=== PATIENT | female | born 1930 | race Asian ===

== ENCOUNTER 2017-12-28 13:01 | Inpatient (IN) | payer MEDICARE, OTHER ==
[~2017-12-28] VITALS: Ht 160 cm; Wt 54.4 kg
[~2017-12-28 13:01] MED LIST: LOSA50TA20 PO; METF-414 PO
[2017-12-28] MEDS ORDERED: DOXA1TAB2 PO (13:19)
[2017-12-28] MEDS ORDERED: PRAV20TA57 PO (13:19)
[2017-12-28] MEDS ORDERED: XAR15 PO (13:19)
[2017-12-28] MEDS ORDERED: DILT180T11 PO (13:19)
[2017-12-28] MEDS ORDERED: FURO-152 PO (13:20)
[2017-12-28] MEDS ORDERED: VANCOMYCIN 1 G PREMIX 200 ML IV ONE (14:15)
[2017-12-28] MEDS ORDERED: FUROSEMIDE 20MG/2ML VIAL IVP ONE (14:15)
[2017-12-28] MEDS ORDERED: PIPERACILLIN/TAZ 3.375G PREMIX 50 ML IV ONE (14:15)
[2017-12-28 15:52] LABS: HEMATOCRIT. 26.7 % (36.0-48.0); HEMOGLOBIN. 9.1 g/dL (12.0-16.0); MEAN CORPUSCULAR HEMOGLOBIN 30.8 pg (28.0-32.0); MEAN CORPUSCULAR VOLUME 90.5 fL (81.0-99.0); MEAN PLATELET VOLUME 7.7 fl (7.4-10.4); PLATELET 208 x1000/uL (130-400); RED BLOOD CELL COUNT 2.95 mill/uL (4.2-5.4); RED CELL DISTRIBUTION WIDTH 13.2 % (11.6-14.6)
[2017-12-28 15:57] LABS: INR 1.1; PARTIAL THROMBOPLASTIN TIME 31.9 sec (23.4-31.0); PROTHROMBIN TIME 11.5 sec (9.1-11.1)
[2017-12-28 16:09] LABS: CLARITY URINE CLEAR (CLEAR); COLOR URINE YELLOW (YELLOW); KETONES URINE NEGATIVE (NEGATIVE); LEUKOCYTE ESTERASE URINE 1+ (NEGATIVE); NITRITE URINE NEGATIVE (NEGATIVE); OCCULT BLOOD URINE TRACE (NEGATIVE); PH URINE 5.5 (4.5-8.0); PROTEIN URINE NEGATIVE (NEGATIVE); SPECIFIC GRAVITY URINE 1.016 (1.005-1.030)
[2017-12-28 16:10] LABS: PLATELET ESTIMATE NORMAL
[2017-12-28] MEDS ORDERED: CLONIDINE 0.1MG TABLET PO PRN ×2 (16:15→21:30)
[2017-12-28 16:31] LABS: CHLORIDE 102 mEq/L (98-107)
[2017-12-28] MEDS ORDERED: MAGNESIUM/ALUMINUM HYDROXIDE/SIMETHICONE 30ML UDC PO PRN (21:30)
[2017-12-28] MEDS ORDERED: TEMAZEPAM 15MG CAPSULE PO PRN (21:30)
[2017-12-28] MEDS ORDERED: ACETAMINOPHEN 325MG TABLET PO PRN (21:30)
[2017-12-28] MEDS ORDERED: PIPERACILLIN/TAZ 3.375G PREMIX 50 ML IV SCH (21:30)
[2017-12-28] MEDS ORDERED: VANCOMYCIN 1 G PREMIX 200 ML IV SCH (21:30)
[2017-12-28] MEDS ORDERED: ENOXAPARIN 60MG/0.6ML SYR SUBCUT SCH (21:30)
[2017-12-28] MEDS ORDERED: ACETAMINOPHEN WITH CODEINE 300/30MG TABLET PO PRN (21:30)
[2017-12-28] MEDS ORDERED: DEXTROSE 50% WATER 50ML SYRINGE IV PRN (21:30)
[2017-12-28] MEDS ORDERED: ONDANSETRON HCL 4MG/2ML INJ IV PRN (21:30)
[2017-12-28 22:16] VITALS: BP 124/79
[2017-12-29] VITALS: BP 138/82
[2017-12-29] MEDS: DILTIAZEM HCL 60MG TABLET PO SCH ×4 (00:29→17:28)
[2017-12-29] MEDS: LOSARTAN POTASSIUM 25 MG TABLET PO SCH ×2 (00:29→08:47)
[2017-12-29] MEDS: INSULIN GLARGINE UD 100 UNITS/ML SYR SUBCUT SCH ×2 (00:33→21:46)
[2017-12-29] MEDS: SODIUM CHLORIDE 0.9% INJ 3ML FLUSH IVF SCH ×4 (00:40→21:48)
[2017-12-29] MEDS: PIPERACILLIN/TAZ 2.25G PREMIX 50 ML IV SCH ×2 (00:41→06:13)
[2017-12-29 04:00] VITALS: BP 155/62
[2017-12-29] MEDS: BLOOD SUGAR DIAGNOSTIC STRIP TEST SCH ×4 (07:00→20:20)
[2017-12-29 07:32] LABS: HEMATOCRIT. 25.3 % (36.0-48.0); HEMOGLOBIN. 8.7 g/dL (12.0-16.0); MEAN CORPUSCULAR HEMOGLOBIN 30.8 pg (28.0-32.0); MEAN CORPUSCULAR VOLUME 89.5 fL (81.0-99.0); MEAN PLATELET VOLUME 7.6 fl (7.4-10.4); PLATELET 190 x1000/uL (130-400); RED BLOOD CELL COUNT 2.83 mill/uL (4.2-5.4); RED CELL DISTRIBUTION WIDTH 13.2 % (11.6-14.6)
[2017-12-29] MEDS: INSULIN LISPRO 100 UNITS/ML SUBCUT SCH ×4 (07:50→20:42)
[2017-12-29] MEDS: METFORMIN HCL 500MG TABLET PO SCH ×3 (07:50→17:27)
[2017-12-29 08:00] VITALS: BP 139/70
[2017-12-29 08:58] LABS: CHLORIDE 103 mEq/L (98-107)
[2017-12-29] MEDS: ASPIRIN 81MG EC TABLET PO SCH (09:00)
[2017-12-29 12:00] VITALS: BP 150/70
[2017-12-29 12:28] LABS: TOTAL IRON BINDING CAPACITY 229 ug/dL (250-450)
[2017-12-29] MEDS: VANCOMYCIN 750 MG PREMIX 150 ML IV SCH (12:54)
[2017-12-29] MEDS ORDERED: PIPERACILLIN/TAZ 2.25G PREMIX 50 ML IV SCH (15:00)
[2017-12-29 16:00] VITALS: BP 126/66
[2017-12-29] MEDS ORDERED: RIVAROXABAN 15 MG TABLET PO SCH (17:00)
[2017-12-29 20:00] VITALS: BP 149/56
[2017-12-29 20:17] LABS: PLATELET ESTIMATE NORMAL
[2017-12-30] VITALS: BP 146/70
[2017-12-30] MEDS: DILTIAZEM HCL 60MG TABLET PO SCH ×4 (00:37→17:07)
[2017-12-30 04:00] VITALS: BP 136/66
[2017-12-30] MEDS: SODIUM CHLORIDE 0.9% INJ 3ML FLUSH IVF SCH ×2 (05:36→14:00)
[2017-12-30] MEDS: BLOOD SUGAR DIAGNOSTIC STRIP TEST SCH ×3 (06:36→16:50)
[2017-12-30] MEDS: INSULIN LISPRO 100 UNITS/ML SUBCUT SCH ×3 (07:50→16:51)
[2017-12-30 08:00] VITALS: BP 131/48
[2017-12-30] MEDS: ASPIRIN 81MG EC TABLET PO SCH (08:22)
[2017-12-30] MEDS: LOSARTAN POTASSIUM 25 MG TABLET PO SCH (08:23)
[2017-12-30] MEDS: METFORMIN HCL 500MG TABLET PO SCH ×2 (08:23→17:06)
[2017-12-30 08:53] LABS: BASOPHILS % 0.4 % (0.0-2.0); EOSINOPHILS % 4.9 % (0.0-5.0); HEMATOCRIT. 27.3 % (36.0-48.0); LYMPHOCYTES % 7.2 % (20.0-50.0); MEAN CORPUSCULAR HEMOGLOBIN 30.1 pg (28.0-32.0); MEAN CORPUSCULAR VOLUME 90.8 fL (81.0-99.0); MEAN PLATELET VOLUME 7.6 fl (7.4-10.4); MONOCYTES % 4.3 % (2.0-8.0); NEUTROPHILS % 83.2 % (40.0-76.0); PLATELET 206 x1000/uL (130-400); RED CELL DISTRIBUTION WIDTH 13.2 % (11.6-14.6)
[2017-12-30 12:00] VITALS: BP 138/70
[2017-12-30] MEDS: VANCOMYCIN 750 MG PREMIX 150 ML IV SCH (12:23)
[2017-12-30 16:00] VITALS: BP 164/70
[2017-12-30 16:59] VITALS: BP 159/70
== END 2017-12-30 18:20 | disposition home or self-care (01) | DRG 580 ==
LOC: ER 13:01 → 6EST 15:46 → ENRESERV 20:00
PROVIDERS: ADMIT Internal Medicine; ATTEND Internal Medicine
PROC: 0KBS0ZZ Excision of Right Lower Leg Muscle, Open Approach (ICD-10-PCS; principal; 2017-12-29)
DX: L03.115 Cellulitis of right lower limb (principal); I47.2 Ventricular tachycardia; S89.91XA Unspecified injury of right lower leg, initial encounter; E11.9 Type 2 diabetes mellitus without complications; E78.00 Pure hypercholesterolemia, unspecified; I11.0 Hypertensive heart disease with heart failure; I08.3 Combined rheumatic disorders of mitral, aortic and tricuspid valves; W18.39XA Other fall on same level, initial encounter; I25.10 Atherosclerotic heart disease of native coronary artery without angina pectoris; I25.5 Ischemic cardiomyopathy; I27.20 Pulmonary hypertension, unspecified; I48.2 Chronic atrial fibrillation; I50.9 Heart failure, unspecified; E78.5 Hyperlipidemia, unspecified; Z79.01 Long term (current) use of anticoagulants; Z95.1 Presence of aortocoronary bypass graft; Z79.84 Long term (current) use of oral hypoglycemic drugs; Z79.899 Other long term (current) drug therapy; I25.2 Old myocardial infarction; Y93.89 Activity, other specified; Y92.89 Other specified places as the place of occurrence of the external cause; Y99.8 Other external cause status
CPT/HCPCS: 36415; 71045; 73562; 80048; 82962; 83036; 83540; 83550; 83605; 83735; 83880; 84145; 84443; 84484; 84550; 85044; 85379; 87070; 87075; 87076; 87077; 87186; 93005; 93971; 96365; 96368; 96375; 99285; J1650; J1815; J1940; J2543; J3370; J7040

== ENCOUNTER 2018-01-16 16:07 | Inpatient (IN) | payer MEDICARE, BC ==
[~2018-01-16] VITALS: Ht 160 cm; Wt 54.0 kg
[~2018-01-16 16:07] MED LIST changes: +DILT180T11 PO; +DOXA1TAB2 PO; +FURO-152 PO; +PRAV20TA57 PO; +XAR15 PO
[2018-01-16] MEDS ORDERED: FUROSEMIDE 40MG/4ML VIAL IVP ONE (17:30)
[2018-01-16 19:40] LABS: BASOPHILS % 0.3 % (0.0-2.0); EOSINOPHILS % 1.9 % (0.0-5.0); LYMPHOCYTES % 7.6 % (20.0-50.0); MEAN CORPUSCULAR HEMOGLOBIN 31.9 pg (28.0-32.0); MEAN CORPUSCULAR VOLUME 94.7 fL (81.0-99.0); MEAN PLATELET VOLUME 8.7 fl (7.4-10.4); MONOCYTES % 4.1 % (2.0-8.0); NEUTROPHILS % 86.1 % (40.0-76.0); PLATELET 157 x1000/uL (130-400); RED BLOOD CELL COUNT 1.89 mill/uL (4.2-5.4); RED CELL DISTRIBUTION WIDTH 17.4 % (11.6-14.6)
[2018-01-16 19:41] LABS: HEMATOCRIT. 17.9 % (36.0-48.0)
[2018-01-16 19:45] LABS: CHLORIDE 106 mEq/L (98-107)
[2018-01-16 19:47] LABS: INR 1.1; PARTIAL THROMBOPLASTIN TIME 26.2 sec (23.4-31.0); PROTHROMBIN TIME 10.6 sec (9.1-11.1)
[2018-01-16 19:50] LABS: TOTAL IRON BINDING CAPACITY 266 ug/dL (250-450)
[2018-01-16] MEDS ORDERED: PANTOPRAZOLE SODIUM 40 MG/VIAL IV ONE (20:00)
[2018-01-16 20:09] LABS: CLARITY URINE CLEAR (CLEAR); COLOR URINE YELLOW (YELLOW); KETONES URINE NEGATIVE (NEGATIVE); LEUKOCYTE ESTERASE URINE 2+ (NEGATIVE); NITRITE URINE NEGATIVE (NEGATIVE); OCCULT BLOOD URINE NEGATIVE (NEGATIVE); PROTEIN URINE NEGATIVE (NEGATIVE); SPECIFIC GRAVITY URINE 1.018 (1.005-1.030); UROBILINOGEN URINE 0.2 E.U./dL (0.2-1.0)
[2018-01-16] MEDS ORDERED: CEFTRIAXONE 1 G PREMIX 50 ML IV ONE (20:15)
[2018-01-16 23:30] VITALS: BP 125/67
[2018-01-16 23:45] VITALS: BP 125/67
[2018-01-17] VITALS (17 sets, daily range): BP systolic 101–149; BP diastolic 57–86
[2018-01-17 07:06] LABS: BASOPHILS % 0.3 % (0.0-2.0); EOSINOPHILS % 3.6 % (0.0-5.0); HEMATOCRIT. 21.1 % (36.0-48.0); HEMOGLOBIN. 7.2 g/dL (12.0-16.0); LYMPHOCYTES % 8.4 % (20.0-50.0); MEAN CORPUSCULAR HEMOGLOBIN 31.5 pg (28.0-32.0); MEAN CORPUSCULAR VOLUME 92.4 fL (81.0-99.0); MEAN PLATELET VOLUME 7.6 fl (7.4-10.4); MONOCYTES % 4.8 % (2.0-8.0); NEUTROPHILS % 82.9 % (40.0-76.0); PLATELET 127 x1000/uL (130-400); RED BLOOD CELL COUNT 2.28 mill/uL (4.2-5.4); RED CELL DISTRIBUTION WIDTH 16.3 % (11.6-14.6)
[2018-01-17] MEDS ORDERED: POTA8TAB4 MT (07:52)
[2018-01-17] MEDS ORDERED: DOXA1TAB2 MT (07:52)
[2018-01-17] MEDS ORDERED: XAR15 MT (07:52)
[2018-01-17] MEDS ORDERED: SULF-288 MT (07:52)
[2018-01-17] MEDS ORDERED: FURO20TA4 MT (07:52)
[2018-01-17] MEDS ORDERED: METF-815 MT (07:52)
[2018-01-17] MEDS ORDERED: DILT-26 MT (07:52)
[2018-01-17] MEDS ORDERED: DEXTROSE 50% WATER 50ML SYRINGE IV PRN (09:00)
[2018-01-17] MEDS ORDERED: DILTIAZEM HCL 120MG CAPSULE SR 12HR PO SCH (09:30)
[2018-01-17] MEDS: IRON SUCROSE COMPLEX 100 MG/5 ML ML IV SCH (10:25)
[2018-01-17] MEDS: BLOOD SUGAR DIAGNOSTIC STRIP TEST SCH ×3 (12:05→21:00)
[2018-01-17] MEDS: INSULIN LISPRO 100 UNITS/ML SUBCUT SCH ×3 (12:44→21:51)
[2018-01-17 15:09] LABS: CHLORIDE 107 mEq/L (98-107)
[2018-01-17] MEDS ORDERED: SORBITOL 70% SOLN 30ML PO NR ×2 (16:00→22:00)
[2018-01-17] MEDS: PANTOPRAZOLE SODIUM 40 MG/VIAL IV SCH (21:15)
[2018-01-17 23:27] LABS: HEMATOCRIT 31.3 % (36.0-48.0); HEMOGLOBIN 10.6 g/dL (12.0-16.0)
[2018-01-17] MEDS ORDERED: DILTIAZEM HCL 120MG CAPSULE CD 24HR PO SCH (23:49)
[2018-01-18] VITALS (11 sets, daily range): BP systolic 116–154; BP diastolic 51–94
[2018-01-18 07:12] LABS: PARTIAL THROMBOPLASTIN TIME 22.6 sec (23.4-31.0); PROTHROMBIN TIME 10.4 sec (9.1-11.1)
[2018-01-18 07:22] LABS: BASOPHILS % 0.6 % (0.0-2.0); HEMATOCRIT. 28.7 % (36.0-48.0); HEMOGLOBIN. 9.8 g/dL (12.0-16.0); LYMPHOCYTES % 9.7 % (20.0-50.0); MEAN CORPUSCULAR HEMOGLOBIN 31.7 pg (28.0-32.0); MEAN CORPUSCULAR VOLUME 93.2 fL (81.0-99.0); MEAN PLATELET VOLUME 7.6 fl (7.4-10.4); MONOCYTES % 6.7 % (2.0-8.0); PLATELET 154 x1000/uL (130-400); RED BLOOD CELL COUNT 3.08 mill/uL (4.2-5.4)
[2018-01-18] MEDS: BLOOD SUGAR DIAGNOSTIC STRIP TEST SCH ×4 (07:30→21:31)
[2018-01-18] MEDS: INSULIN LISPRO 100 UNITS/ML SUBCUT SCH ×4 (08:00→21:31)
[2018-01-18 10:53] LABS: CHLORIDE 122 mEq/L (98-107)
[2018-01-18 11:05] LABS: CREATINE KINASE MB FRACTION < 1.0 ng/mL (0.5-3.6)
[2018-01-18 11:08] LABS: CREATINE KINASE 25 IU/L (26-192)
[2018-01-18] MEDS: PANTOPRAZOLE SODIUM 40 MG/VIAL IV SCH ×2 (11:54→21:00)
[2018-01-18] MEDS: IRON SUCROSE COMPLEX 100 MG/5 ML ML IV SCH (12:06)
[2018-01-18] MEDS ORDERED: MIDAZOLAM HCL 5 MG/5 ML VIAL ONE (15:39)
[2018-01-18] MEDS ORDERED: FENTANYL CITRATE/PF 50MCG/ML 2ML VIAL ONE (15:39)
[2018-01-18] MEDS ORDERED: SIMETHICONE 40 MG/0.6 ML 30ML ONE (15:40)
[2018-01-18] MEDS ORDERED: MIDAZOLAM HCL 5 MG/5 ML VIAL IV PRN (15:50)
[2018-01-18] MEDS ORDERED: STERILE WATER FOR INJECTION 10ML VIAL ONE (15:54)
[2018-01-18] MEDS ORDERED: VERAPAMIL HCL 2.5 MG/1 ML 2ML VIAL IV NR (16:06)
[2018-01-18] MEDS ORDERED: DEXT 5%/0.45% NACL 500ML 500 ML IV ONE (16:30)
[2018-01-18 18:36] LABS: VITAMIN B12 SERUM > 2000.0 pg/mL (211-911)
[2018-01-18] MEDS ORDERED: VERAPAMIL HCL 2.5 MG/1 ML 2ML VIAL IV PRN (20:00)
[2018-01-18] MEDS: DILTIAZEM HCL 90MG CAPSULE SR 12HR PO SCH (21:01)
[2018-01-19] VITALS: BP 104/43
[2018-01-19 02:00] VITALS: BP 100/54
[2018-01-19 04:00] VITALS: BP 104/58
[2018-01-19 06:00] VITALS: BP 112/54
[2018-01-19] MEDS: BLOOD SUGAR DIAGNOSTIC STRIP TEST SCH ×4 (07:47→21:02)
[2018-01-19 07:51] LABS: BASOPHILS % 0.5 % (0.0-2.0); EOSINOPHILS % 2.8 % (0.0-5.0); HEMATOCRIT. 27.5 % (36.0-48.0); HEMOGLOBIN. 9.3 g/dL (12.0-16.0); LYMPHOCYTES % 8.2 % (20.0-50.0); MEAN CORPUSCULAR HEMOGLOBIN 32.1 pg (28.0-32.0); MEAN CORPUSCULAR VOLUME 94.8 fL (81.0-99.0); MEAN PLATELET VOLUME 7.6 fl (7.4-10.4); MONOCYTES % 5.3 % (2.0-8.0); NEUTROPHILS % 83.2 % (40.0-76.0); PLATELET 135 x1000/uL (130-400); RED CELL DISTRIBUTION WIDTH 16.3 % (11.6-14.6)
[2018-01-19] MEDS: INSULIN LISPRO 100 UNITS/ML SUBCUT SCH ×4 (08:00→21:02)
[2018-01-19] MEDS ORDERED: ASPIRIN 81MG EC TABLET PO SCH (09:00)
[2018-01-19] MEDS: IRON SUCROSE COMPLEX 100 MG/5 ML ML IV SCH (09:07)
[2018-01-19] MEDS: DILTIAZEM HCL 90MG CAPSULE SR 12HR PO SCH ×2 (09:07→21:01)
[2018-01-19] MEDS ORDERED: ENOXAPARIN 30MG/0.3ML SYR SUBCUT ONE (12:30)
[2018-01-19] MEDS ORDERED: ENOXAPARIN 40MG/0.4ML SYR SUBCUT NR (15:45)
[2018-01-19] MEDS ORDERED: SORBITOL 70% SOLN 30ML PO NR (16:30)
[2018-01-19 20:00] VITALS: BP 129/61
[2018-01-19 22:00] VITALS: BP 132/53
[2018-01-20] VITALS (10 sets, daily range): BP systolic 118–146; BP diastolic 57–79
[2018-01-20 07:13] LABS: BASOPHILS % 0.6 % (0.0-2.0); HEMATOCRIT. 28.5 % (36.0-48.0); HEMOGLOBIN. 9.4 g/dL (12.0-16.0); LYMPHOCYTES % 8.5 % (20.0-50.0); MEAN CORPUSCULAR HEMOGLOBIN 31.5 pg (28.0-32.0); MEAN CORPUSCULAR VOLUME 95.4 fL (81.0-99.0); MEAN PLATELET VOLUME 7.5 fl (7.4-10.4); MONOCYTES % 4.7 % (2.0-8.0); NEUTROPHILS % 82.2 % (40.0-76.0); PLATELET 128 x1000/uL (130-400); RED BLOOD CELL COUNT 2.99 mill/uL (4.2-5.4); RED CELL DISTRIBUTION WIDTH 16.4 % (11.6-14.6)
[2018-01-20] MEDS: BLOOD SUGAR DIAGNOSTIC STRIP TEST SCH ×4 (07:30→20:42)
[2018-01-20] MEDS: INSULIN LISPRO 100 UNITS/ML SUBCUT SCH ×4 (08:00→20:47)
[2018-01-20] MEDS ORDERED: NA PHOS,M-B/NA PHOS,DI-BA ENEMA 118ML PR NR (09:00)
[2018-01-20] MEDS: DILTIAZEM HCL 90MG CAPSULE SR 12HR PO SCH ×2 (09:58→21:00)
[2018-01-20] MEDS ORDERED: MIDAZOLAM HCL 5 MG/5 ML VIAL IV ONE (14:45)
[2018-01-20] MEDS ORDERED: MIDAZOLAM HCL 5 MG/5 ML VIAL ONE ×2 (14:54→14:55)
[2018-01-20] MEDS ORDERED: FENTANYL CITRATE/PF 50MCG/ML 2ML VIAL ONE (14:55)
[2018-01-20] MEDS ORDERED: ENOXAPARIN 40MG/0.4ML SYR SUBCUT NR (18:30)
[2018-01-21] VITALS (12 sets, daily range): BP systolic 106–147; BP diastolic 59–92
[2018-01-21 07:13] LABS: BASOPHILS % 0.4 % (0.0-2.0); EOSINOPHILS % 4.1 % (0.0-5.0); HEMATOCRIT. 27.8 % (36.0-48.0); HEMOGLOBIN. 9.3 g/dL (12.0-16.0); LYMPHOCYTES % 8.3 % (20.0-50.0); MEAN CORPUSCULAR VOLUME 95.6 fL (81.0-99.0); MEAN PLATELET VOLUME 7.5 fl (7.4-10.4); MONOCYTES % 5.2 % (2.0-8.0); PLATELET 125 x1000/uL (130-400); RED BLOOD CELL COUNT 2.91 mill/uL (4.2-5.4); RED CELL DISTRIBUTION WIDTH 15.7 % (11.6-14.6)
[2018-01-21] MEDS: BLOOD SUGAR DIAGNOSTIC STRIP TEST SCH ×4 (07:30→21:00)
[2018-01-21] MEDS: INSULIN LISPRO 100 UNITS/ML SUBCUT SCH ×4 (08:00→21:53)
[2018-01-21] MEDS: DILTIAZEM HCL 90MG CAPSULE SR 12HR PO SCH ×2 (13:04→21:24)
[2018-01-21] MEDS: IRON SUCROSE COMPLEX 100 MG/5 ML ML IV SCH (21:23)
[2018-01-21] MEDS: ENOXAPARIN 40MG/0.4ML SYR SUBCUT SCH (21:26)
[2018-01-22] VITALS (11 sets, daily range): BP systolic 121–147; BP diastolic 50–74
[2018-01-22 06:51] LABS: BASOPHILS % 0.3 % (0.0-2.0); EOSINOPHILS % 5.1 % (0.0-5.0); HEMATOCRIT. 26.6 % (36.0-48.0); LYMPHOCYTES % 9.9 % (20.0-50.0); MEAN CORPUSCULAR HEMOGLOBIN 32.3 pg (28.0-32.0); MEAN CORPUSCULAR VOLUME 95.1 fL (81.0-99.0); MEAN PLATELET VOLUME 7.8 fl (7.4-10.4); NEUTROPHILS % 78.7 % (40.0-76.0); PLATELET 121 x1000/uL (130-400); RED CELL DISTRIBUTION WIDTH 16.2 % (11.6-14.6)
[2018-01-22] MEDS: BLOOD SUGAR DIAGNOSTIC STRIP TEST SCH ×4 (07:30→21:00)
[2018-01-22] MEDS ORDERED: DIATR MEGLU/DIATRIZOATE SOLN 120ML ONE (07:49)
[2018-01-22] MEDS: INSULIN LISPRO 100 UNITS/ML SUBCUT SCH ×4 (08:00→21:00)
[2018-01-22] MEDS: DILTIAZEM HCL 90MG CAPSULE SR 12HR PO SCH (10:13)
[2018-01-22] MEDS: ENOXAPARIN 40MG/0.4ML SYR SUBCUT SCH ×2 (10:14→21:39)
[2018-01-22] MEDS ORDERED: DILTIAZEM HCL 120MG CAPSULE SR 12HR PO SCH (21:00)
[2018-01-22] MEDS: IRON SUCROSE COMPLEX 100 MG/5 ML ML IV SCH (21:38)
[2018-01-22] MEDS ORDERED: DILTIAZEM HCL 120MG CAPSULE CD 24HR PO SCH (23:00)
[2018-01-23] VITALS (7 sets, daily range): BP systolic 131–154; BP diastolic 65–84
[2018-01-23] MEDS: INSULIN LISPRO 100 UNITS/ML SUBCUT SCH ×3 (08:00→17:25)
[2018-01-23] MEDS: BLOOD SUGAR DIAGNOSTIC STRIP TEST SCH ×3 (08:18→17:25)
[2018-01-23] MEDS: ENOXAPARIN 40MG/0.4ML SYR SUBCUT SCH (09:03)
[2018-01-23 13:06] LABS: BASOPHILS % 0.5 % (0.0-2.0); HEMATOCRIT. 29.3 % (36.0-48.0); HEMOGLOBIN. 9.7 g/dL (12.0-16.0); LYMPHOCYTES % 13.2 % (20.0-50.0); MEAN CORPUSCULAR HEMOGLOBIN 31.6 pg (28.0-32.0); MEAN CORPUSCULAR VOLUME 95.2 fL (81.0-99.0); MEAN PLATELET VOLUME 7.3 fl (7.4-10.4); MONOCYTES % 6.1 % (2.0-8.0); NEUTROPHILS % 76.2 % (40.0-76.0); PLATELET 128 x1000/uL (130-400); RED BLOOD CELL COUNT 3.08 mill/uL (4.2-5.4); RED CELL DISTRIBUTION WIDTH 16.2 % (11.6-14.6)
== END 2018-01-23 19:15 | disposition home or self-care (01) | DRG 378 ==
LOC: ER 16:07 → 5EST 19:49 → EDBEDREQSVC 19:52 → EDBEDREQTM 19:52 → EDBEDREQ 19:52 → ENRESERV 21:24
PROVIDERS: ADMIT Specialist; ATTEND Specialist
PROC: 30233N1 Transfusion of Nonautologous Red Blood Cells into Peripheral Vein, Percutaneous Approach (ICD-10-PCS; principal; 2018-01-16)
PROC: 0DJ08ZZ Inspection of Upper Intestinal Tract, Via Natural or Artificial Opening Endoscopic (ICD-10-PCS; 2018-01-18)
PROC: 0DJD8ZZ Inspection of Lower Intestinal Tract, Via Natural or Artificial Opening Endoscopic (ICD-10-PCS; 2018-01-20)
DX: K29.61 Other gastritis with bleeding (principal); I42.0 Dilated cardiomyopathy; I47.2 Ventricular tachycardia; E87.0 Hyperosmolality and hypernatremia; N28.9 Disorder of kidney and ureter, unspecified; Z95.1 Presence of aortocoronary bypass graft; I48.2 Chronic atrial fibrillation; I08.3 Combined rheumatic disorders of mitral, aortic and tricuspid valves; I27.20 Pulmonary hypertension, unspecified; I25.10 Atherosclerotic heart disease of native coronary artery without angina pectoris; E78.00 Pure hypercholesterolemia, unspecified; K63.89 Other specified diseases of intestine; I25.5 Ischemic cardiomyopathy; I50.9 Heart failure, unspecified; I11.0 Hypertensive heart disease with heart failure; J44.9 Chronic obstructive pulmonary disease, unspecified; E11.9 Type 2 diabetes mellitus without complications; D69.6 Thrombocytopenia, unspecified; K44.9 Diaphragmatic hernia without obstruction or gangrene; D50.0 Iron deficiency anemia secondary to blood loss (chronic); K64.8 Other hemorrhoids; Z79.899 Other long term (current) drug therapy; I25.2 Old myocardial infarction
CPT/HCPCS: 36415; 71045; 74270; 76700; 80048; 82270; 82550; 82553; 82607; 82728; 82962; 83540; 83550; 83735; 83880; 84443; 84484; 85014; 85018; 85044; 86850; 86870; 86900; 86920; 93005; 96365; 96375; 99152; 99291; A4216; C9113; J0696; J1650; J1815; J1940; J2250; J3010; P9016; Q9963; G0500